=== PATIENT | male | born 1965 | race Hispanic/Latino ===

== ENCOUNTER 2019-06-12 07:48 | Emergency (ER) | payer OTHER ==
[2019-06-12] MEDS ORDERED: NA CHLORIDE 0.9% 1,000 ML ONE (08:06)
[2019-06-12] MEDS ORDERED: ONDANSETRON 4 MG/2 ML VIAL ONE (08:07)
[2019-06-12 08:24] LABS: Absolute Lymphocytes (CBC) 1.2 K/uL (0.7-4.9); Basophils % 0.9 % (0-1.3); Hematocrit 49.3 % (39.6-49.0); Lymphocytes % 21.2 % (15.3-44.8); MPV 8.8 fL (7.6-11.3); RBC Red Blood Cell Count 5.22 M/uL (4.33-5.43)
[2019-06-12 08:43] LABS: ALT/SGPT 58 U/L (12-78); AST/SGOT 33 U/L (15-37); Albumin 3.6 g/dL (3.4-5.0); Alkaline Phosphatase 79 U/L (45-117); BUN Blood Urea Nitrogen 11 mg/dL (7-18); Bicarbonate 26 mmol/L (21-32); Bilirubin Direct 0.2 mg/dL (0-0.2); Bilirubin Total 0.7 mg/dL (0.2-1.0); Glucose Level 112 mg/dL (74-106); Lipase 375 U/L (73-393); Potassium 3.5 mmol/L (3.5-5.1); Protein, Total 7.3 g/dL (6.4-8.2); Sodium Level 143 mmol/L (136-145); Troponin (Emerg Dept Use Only) < 0.02 ng/mL (0.0-0.045)
--- NOTE | 2019-06-12 09:23 | RAD REPORT ---
EXAM DESCRIPTION: Maximo Single View06/12/2019 9:00 am CLINICAL HISTORY: Cough COMPARISON: none FINDINGS: Left lateral base is hazy Right lung appears clear. The heart is normal size IMPRESSION: Left lateral base is hazy probably secondary to overlying soft tissue. An infiltrate cou ld also have this appearance. PA and lateral chest series would be helpful
--- NOTE | 2019-06-12 10:20 | ER ---
Nurse's Notes [facility] Name: Quoc Guillen Jr Age: 53 yrs Sex: Male : 1965 Arrival Date: 06/12/2019 Time: 07:49 Bed 20 Private MD: Diagnosis: Muscle spasm;Left basilar pneumonia Presentation: 06/12 08:02 Presenting complaint: Patient states: woke up this morning and had pain to lui iw shoulders, also felt nauseous and has been belching, denies vomiting, yesterday evening he was working on his car, may have gotten overheated, feels sore/achy, denies abd pain. Transition of care: patient was not received from another setting of care. Onset of symptoms was June 12, 2019. Risk Assessment: Do you want to hurt yourself or someone else? Patient reports no desire to harm self or others. Initial Sepsis Screen: Does the patient meet any 2 criteria? No. Patient's initial sepsis screen is negative. Does the patient have a suspected source of infection? No. Patient's initial sepsis screen is negative. Care prior to arrival: None. 08:02 Method Of Arrival: Ambulatory iw 08:02 Acuity: OFELIA 3 iw Historical: - Allergies: 08:05 No Known Allergies; iw - Home Meds: 08:05 None [Active]; iw - PMHx: 08:05 None; iw - PSHx: 08:05 Hernia repair; left leg; iw - Immunization history:: Adult Immunizations not up to date. - Social history:: Smoking status: Patient/guardian denies using tobacco. - Ebola Screening: : Patient negative for fever greater than or equal to 101.5 degrees Fahrenheit, and additional compatible Ebola Virus Disease symptoms Patient denies exposure to infectious person Patient denies travel to an Ebola-affected area in the 21 days before illness onset No symptoms or risks identified at this time. - Family history:: not pertinent. - Hospitalizations: : No recent hospitalization is reported. Screenin:15 Abuse screen: Denies threats or abuse. Nutritional screening: No deficits noted. em Tuberculosis screening: No symptoms or risk factors identified. Fall Risk None identified. Assessment: 08:16 General: Appears in no apparent distress. comfortable, Behavior is calm, cooperative, em Reports working outside while changing out spark plugs on vehicle, did not drink water while outside, reports having two sweaty shirts Denies fever. Pain: Complains of pain in left trapezius and right trapezius Pain currently is 3 out of 10 on a pain scale. Neuro: Level of Consciousness is awake, alert, obeys commands, Oriented to person, place, time, situation. Cardiovascular: Denies chest pain, Capillary refill < 3 seconds Patient's skin is warm and dry. Rhythm is sinus rhythm. Respiratory: Reports cough that is non-productive, Airway is patent Respiratory effort is even, unlabored, Respiratory pattern is regular, symmetrical, Breath sounds are clear bilaterally. Denies shortness of breath. GI: Abdomen is round non-distended, Bowel sounds present X 4 quads. Abd is soft and non tender X 4 quads. Reports nausea, Patient currently denies diarrhea, vomiting. Derm: Skin is intact, is healthy with good turgor, Skin is pink, warm \T\ dry. Musculoskeletal: Capillary refill < 3 seconds, Range of motion: intact in all extremities. 08:56 Reassessment: Patient appears in no apparent distress at this time. Patient and/or em family updated on plan of care and expected duration. Pain level reassessed. Patient is alert, oriented x 3, equal unlabored respirations, skin warm/dry/pink. nausea has improved, rates pain 3/10. 10:04 Reassessment: Patient appears in no apparent distress at this time. Patient and/or em family updated on plan of care and expected duration. Pain level reassessed. Patient is alert, oriented x 3, equal unlabored respirations, skin warm/dry/pink. Vital Signs: 08:05 BP 131 / 90; Pulse 77; Resp 16; Temp 97.7(O); Pulse Ox 92% on R/A; Weight 111.13 kg; iw Height 5 ft. 7 in. (170.18 cm); 08:56 BP 132 / 87; Pulse 75; Resp 18; Pulse Ox 100% on R/A; Pain 3/10; em 10:04 BP 127 / 78; Pulse 76; Resp 18; Pulse Ox 96% on R/A; em 08:05 Body Mass Index 38.37 (111.13 kg, 170.18 cm) iw ED Course: 07:49 Patient arrived in ED. as 07:53 Guy Camacho MD is Attending Physician. rn 07:55 Reese Chan LVN is Primary Nurse. em 08:04 Triage completed. iw 08:15 EKG done, by medical service technician. reviewed by Guy Camacho MD. at1 08:16 Arm band placed on. em 08:16 Patient has correct armband on for positive identification. Placed in gown. Bed in low em position. Call light in reach. Adult w/ patient. Pulse ox on. NIBP on. 08:19 Initial lab(s) drawn, by me, sent to lab. Inserted saline lock: 20 gauge in right ms antecubital area, using aseptic technique. Blood collected. 09:04 XRAY Chest (1 view) In Process Unspecified. EDMS 10:30 No provider procedures requiring assistance completed. IV discontinued, intact, em bleeding controlled, No redness/swelling at site. Pressure dressing applied. Administered Medications: 08:13 Drug: NS 0.9% 1000 ml Route: IV; Rate: 1000 ml; Site: right forearm; em 10:31 Follow up: IV Status: Completed infusion; IV Intake: 1000ml em 08:14 Drug: Zofran 4 mg Route: IVP; Site: right forearm; iw 09:00 Follow up: Response: No adverse reaction; Marked relief of symptoms; Nausea is decreasedem Intake: 10:31 IV: 1000ml; Total: 1000ml. em Outcome: 10:19 Discharge ordered by . rn 10:31 Discharged to home ambulatory. em 10:31 Condition: good 10:31 Discharge instructions given to patient, family, Instructed on discharge instructions, follow up and referral plans. medication usage, Demonstrated understanding of instructions, follow-up care, medications, Prescriptions given X 2. 10:37 Patient left the ED. em Signatures: Dispatcher [employer] EDCA Reese Chan LVN LVN em Stefany Quinonez Irene, RN Lianne Wilkins ms, Roman, MD MD rn Gonzales, Amanda, general activities therapist EKG Tat1
--- NOTE | 2019-06-12 10:21 | EDPHYS ---
Physician Documentation [facility] Name: Quoc Guillen Jr Age: 53 yrs Sex: Male : 1965 Arrival Date: 06/12/2019 Time: 07:49 Bed 20 Private MD: ED Physician Guy Camacho HPI: 06/12 08:14 This 53 yrs old Male presents to ER via Ambulatory with complaints of Shoulder rn Pain, Nausea. 08:14 The patient or guardian complains of pain. right trapezius and left trapezius. Onset: rn The symptoms/episode began/occurred this morning. Modifying factors: the symptoms are alleviated by nothing. The symptoms are aggravated by movement. Severity of symptoms: At their worst the symptoms were mild, in the emergency department the symptoms are unchanged. The patient has not experienced similar symptoms in the past. The patient has not recently seen a physician. Reports both shoulder hurt, was working for a long time on vehicle, feels like he is dehydrated, woke up feeling nauseated. Denies chest pain/abd pain/diarrhea/vomiting. Reports didn't drink any water yesterday. . Historical: - Allergies: 08:05 No Known Allergies; iw - Home Meds: 08:05 None [Active]; iw - PMHx: 08:05 None; iw - PSHx: 08:05 Hernia repair; left leg; iw - Immunization history:: Adult Immunizations not up to date. - Social history:: Smoking status: Patient/guardian denies using tobacco. - Ebola Screening: : Patient negative for fever greater than or equal to 101.5 degrees Fahrenheit, and additional compatible Ebola Virus Disease symptoms Patient denies exposure to infectious person Patient denies travel to an Ebola-affected area in the 21 days before illness onset No symptoms or risks identified at this time. - Family history:: not pertinent. - Hospitalizations: : No recent hospitalization is reported. ROS: 08:14 Constitutional: Negative for fever, chills, and weight loss, Eyes: Negative for injury, rn pain, redness, and discharge, ENT: Negative for injury, pain, and discharge, Neck: Negative for injury, pain, and swelling, Cardiovascular: Negative for chest pain, palpitations, and edema, Respiratory: Negative for shortness of breath, cough, wheezing, and pleuritic chest pain, Abdomen/GI: Negative for abdominal pain, vomiting, diarrhea, and constipation, Back: Negative for injury and pain, MS/Extremity: Negative for injury and deformity, Skin: Negative for injury, rash, and discoloration, Neuro: Negative for headache, weakness, numbness, tingling, and seizure. Exam: 08:14 Constitutional: This is a well developed, well nourished patient who is awake, alert, rn and in no acute distress. Ambulatory to room without difficulty or assistance. Head/Face: Normocephalic, atraumatic. Eyes: Pupils equal round and reactive to light, extra-ocular motions intact. Lids and lashes normal. Conjunctiva and sclera are non-icteric and not injected. Cornea within normal limits. Periorbital areas with no swelling, redness, or edema. ENT: dry MM Neck: Trachea midline, no thyromegaly or masses palpated, and no cervical lymphadenopathy. Supple, full range of motion without nuchal rigidity, or vertebral point tenderness. No Meningismus. Chest/axilla: Normal chest wall appearance and motion. Nontender with no deformity. No lesions are appreciated. Cardiovascular: Regular rate and rhythm. No pulse deficits. Respiratory: Lungs have equal breath sounds bilaterally, clear to auscultation. No increased work of breathing, no retractions or nasal flaring. Abdomen/GI: soft, non-tender MS/ Extremity: Pulses equal, no cyanosis. Neurovascular intact. Full, normal range of motion. Equal circumference. Neuro: Awake and alert, GCS 15, oriented to person, place, time, and situation. Cranial nerves II-XII grossly intact. Motor strength 5/5 in all extremities. Sensory grossly intact. Cerebellar exam normal. Normal gait. Vital Signs: 08:05 BP 131 / 90; Pulse 77; Resp 16; Temp 97.7(O); Pulse Ox 92% on R/A; Weight 111.13 kg; iw Height 5 ft. 7 in. (170.18 cm); 08:56 BP 132 / 87; Pulse 75; Resp 18; Pulse Ox 100% on R/A; Pain 3/10; em 10:04 BP 127 / 78; Pulse 76; Resp 18; Pulse Ox 96% on R/A; em 08:05 Body Mass Index 38.37 (111.13 kg, 170.18 cm) iw MDM: 07:53 Patient medically screened. rn 10:17 Differential diagnosis: muscle aches, cramps, dehydration, pneumonia. Data reviewed: rn vital signs, nurses notes, lab test result(s), EKG, radiologic studies, plain films, and as a result, I will discharge patient. Counseling: I had a detailed discussion with the patient and/or guardian regarding: the historical points, exam findings, and any diagnostic results supporting the discharge/admit diagnosis, lab results, radiology results, the need for outpatient follow up, to return to the emergency department if symptoms worsen or persist or if there are any questions or concerns that arise at home. Response to treatment: the patient's symptoms have markedly improved after treatment, and as a result, I will discharge patient. Special discussion: I discussed with the patient/guardian in detail that at this point there is no indication for admission to the hospital. It is understood, however, that if the symptoms persist or worsen the patient needs to return immediately for re-evaluation. ED course: Pt improved, is sitting up, laughing, questionable left base haziness, patient with cough, will treat with abx for possible early pneumonia. ECG without ischemic changes, trop neg. . 06/12 08:04 Order name: CBC with Diff; Complete Time: 08:56 rn 06/12 08:04 Order name: Basic Metabolic Panel; Complete Time: 08:56 rn 06/12 08:04 Order name: XRAY Chest (1 view); Complete Time: 10:16 rn 06/12 08:04 Order name: Troponin (emerg Dept Use Only); Complete Time: 08:56 rn 06/12 08:04 Order name: LFT's; Complete Time: 08:56 rn 06/12 08:04 Order name: Lipase; Complete Time: 08:56 rn 06/12 08:04 Order name: IV Start; Complete Time: 08:14 rn 06/12 08:04 Order name: EKG; Complete Time: 08:06 rn 06/12 08:04 Order name: EKG - Nurse/Tech; Complete Time: 08:14 rn Administered Medications: 08:13 Drug: NS 0.9% 1000 ml Route: IV; Rate: 1000 ml; Site: right forearm; em 10:31 Follow up: IV Status: Completed infusion; IV Intake: 1000ml em 08:14 Drug: Zofran 4 mg Route: IVP; Site: right forearm; iw 09:00 Follow up: Response: No adverse reaction; Marked relief of symptoms; Nausea is decreasedem Disposition: 06/12/19 10:19 Discharged to Home. Impression: Muscle spasm, Left basilar pneumonia. - Condition is Stable. - Discharge Instructions: Dehydration, Adult, Community-Acquired Pneumonia, Adult. - Prescriptions for Zofran ODT 4 mg Oral tablet,disintegrating - place 1 tablet by TRANSLINGUAL route every 8 hours As needed; 20 tablet. Zithromax Z- Derrick 250 mg Oral Tablet - take 1 tablet by ORAL route as directed for 5 days Day 1 - take two (2) tablets one time. Day 2, 3, 4 , 5 take one (1) tablet once daily.; 6 tablet. - Medication Reconciliation Form, Thank You Letter, Antibiotic Education, Prescription Opioid Use form. - Follow up: Private Physician; When: As needed; Reason: Recheck today's complaints, Re-evaluation by your physician. - Problem is new. - Symptoms have improved. Signatures: Dispatcher [employer] EDReese Zuleta, ELECTRIC POWER MACHINE OPERATOR ELECTRIC POWER MACHINE OPERATOR em Lorna Pastrana, KIT PANTOJA iw Guy Camacho MD MD travel journalist: (The following items were deleted from the chart) 10:37 10:19 06/12/2019 10:19 Discharged to Home. Impression: Muscle spasm; Left basilar em pneumonia. Condition is Stable. Forms are Medication Reconciliation Form, Thank You Letter, Antibiotic Education, Prescription Opioid Use. Follow up: Private Physician; When: As needed; Reason: Recheck today's complaints, Re-evaluation by your physician. Problem is new. Symptoms have improved. rn
--- NOTE | 2019-06-12 11:45 | EKG ---
Test Date: 2019-06-12 Test Time: 08:09:49 Assistant Professor Of Criminal Justice: SEB MEASUREMENT RESULTS: Intervals: Rate: 75 AK: 148 QRSD: 96 QT: 396 QTc: 442 [place]: P: 42 AK: 148 QRS: -45 T: 43 INTERPRETIVE STATEMENTS: Normal sinus rhythm Left anterior fascicular block Abnormal ECG No previous ECG available for comparison Electronically Signed On 06-12-19 11:44:31 CDT by Melvin Vela
== END 2019-06-12 10:37 | disposition home or self-care (01) ==
LOC: ER 07:48
DX: M62.838 Other muscle spasm (principal); J18.9 Pneumonia, unspecified organism
CPT/HCPCS: 96361; 93005; 85025; 80048; 36415; 80076; 84484; 83690; 71045; 96374; 99284; J7030; J2405

== ENCOUNTER 2022-05-10 12:12 | Emergency (ER) | payer OTHER ==
[2022-05-10] MEDS ORDERED: NA CHLORIDE 0.9% 1,000 ML ONE (12:58)
[2022-05-10 13:05] LABS: Absolute Lymphocytes (CBC) 1.2 K/uL (0.7-4.9); Hematocrit 53.7 % (39.6-49.0); MPV 8.5 fL (7.6-11.3); RBC Red Blood Cell Count 5.77 M/uL (4.33-5.43)
[2022-05-10] MEDS ORDERED: ONDANSETRON 4 MG/2 ML VIAL ONE (13:05)
[2022-05-10] MEDS ORDERED: MORPHINE 4 MG/ML SYR ONE ×2 (13:05→15:32)
[2022-05-10 13:17] LABS: Albumin 3.5 g/dL (3.4-5.0); Bilirubin Total 1.1 mg/dL (0.2-1.0); Potassium 3.9 mmol/L (3.5-5.1); Protein, Total 8.1 g/dL (6.4-8.2)
[2022-05-10 14:02] LABS: Urine Blood Trace-intact (Negative); Urine Glucose 2+ (Negative); Urine Protein 1+ (Negative); Urine Specific Gravity 1.015 (1.005-1.030); Urine pH 6.5 (5.0-7.0)
--- NOTE | 2022-05-10 14:21 | RAD REPORT ---
EXAM DESCRIPTION: CTAbdomen Pelvis W Contrast - 05/10/2022 1:59 pm CLINICAL HISTORY: Abdominal pain. flank pain COMPARISON: No comparisons TECHNIQUE: Biphasic CT imaging of the abdomen and pelvis was performed with 100 ml non-ionic IV cont rast. All CT scans are performed using dose optimization technique as appropriate and may include automated exposure control or mA/KV adjustment according to patient size. FINDINGS: The lung bases are clear. Multiple cysts are present affecting the liver, largest in the left lobe measuring 119 cm. No aggress tika lesion seen. No biliary dilatation. The spleen, pancreas, adrenal glands are normal. Bilateral re nal cysts are present. Large stone is present in the right renal pelvis and calices likely staghorn calculus. Punctate calcu pia is seen superior pole left kidney. No bowel obstruction, free air, free fluid or abscess. Sigmoid diverticulosis coli without diverticul itis. The appendix is normal. Small fat containing left inguinal hernia. No evidence of significant l ymphadenopathy. No suspicious bony findings. IMPRESSION: Large right right-sided staghorn calculus. Punctate superior left renal calculus
[2022-05-10 14:42] LABS: Urine Bacteria <20 /HPF (<20); Urine RBC <5 /HPF (None Seen)
--- NOTE | 2022-05-10 15:07 | ER ---
[facility] Name: Quoc Guillen Jr Age: 56 yrs Sex: Male : 1965 Arrival Date: 05/10/2022 Time: 12:16 Bed 14 [facility] MD: Diagnosis: Calculus of kidney Presentation: 05/10 12:27 Chief complaint: Patient states: right flank pain since Saturday night hurts more when he iw walks, pain radiates to back , no blood in urine. Coronavirus screen: At this time, the client does not indicate any symptoms associated with coronavirus-19. Ebola Screen: Patient negative for fever greater than or equal to 101.5 degrees Fahrenheit, and additional compatible Ebola Virus Disease symptoms Patient denies exposure to infectious person. Patient denies travel to an Ebola-affected area in the 21 days before illness onset. No symptoms or risks identified at this time. Initial Sepsis Screen: Does the patient meet any 2 criteria? No. Patient's initial sepsis screen is negative. Does the patient have a suspected source of infection? No. Patient's initial sepsis screen is negative. Risk Assessment: Do you want to hurt yourself or someone else? Patient reports no desire to harm self or others. Onset of symptoms was May 06, 2022. 12:27 Method Of Arrival: Ambulatory iw 12:27 Acuity: OFELIA 3 iw Triage Assessment: 12:30 General: Appears in no apparent distress. uncomfortable, obese, Behavior is calm, bp cooperative, appropriate for age. Pain: Complains of pain in right flank. EENT: No deficits noted. Neuro: No deficits noted. Cardiovascular: No deficits noted. Respiratory: No deficits noted. GI: No deficits noted. : Reports pain in right flank(s). Derm: No deficits noted. Musculoskeletal: No deficits noted. Historical: - Allergies: 12:28 No Known Allergies; iw - Home Meds: 12:28 None [Active]; iw - PMHx: 12:28 None; iw - PSHx: 12:28 knee; iw - Immunization history:: Adult Immunizations up to date. - Social history:: Smoking status: unknown. Screenin:30 Abuse screen: Denies threats or abuse. Denies injuries from another. Nutritional bp screening: No deficits noted. Tuberculosis screening: No symptoms or risk factors identified. Fall Risk None identified. Assessment: 12:30 General: SEE TRIAGE NOTE. bp 14:48 Reassessment: Patient and/or family updated on plan of care and expected duration. Pain jg9 level reassessed. Patient is alert, oriented x 3, equal unlabored respirations, skin warm/dry/pink. Patient states feeling better. Patient states symptoms have improved. 15:29 Reassessment: Patient and/or family updated on plan of care and expected duration. Pain jg9 level reassessed. Patient is alert, oriented x 3, equal unlabored respirations, skin warm/dry/pink. Patient is alert/active/playful, equal unlabored respirations, skin warm/dry/pink. Vital Signs: 12:27 BP 124 / 80; Pulse 122; Resp 16; Temp 99.6; Pulse Ox 96% ; iw 12:45 BP 145 / 257; Pulse 86; Resp 18 S; Pulse Ox 95% ; Pain 7/10; jg9 13:30 BP 126 / 87; Pulse 113; Resp 17 S; Pulse Ox 95% on R/A; Pain 5/10; jg9 14:30 BP 139 / 90; Pulse 74; Resp 18 S; Pulse Ox 93% on R/A; Pain 5/10; jg9 15:15 BP 120 / 83; Pulse 109; Resp 18 S; Pulse Ox 93% on R/A; Pain 5/10; jg9 ED Course: 12:16 Patient arrived in ED. am2 12:28 Triage completed. iw 12:30 Calvin Pang NP is PHCP. pm1 12:30 Dave Jacinto MD is Attending Physician. pm1 12:30 Patient has correct armband on for positive identification. Bed in low position. Call bp light in reach. Side rails up X2. 12:34 Arm band placed on. bp 12:39 Maria Renae, KIT is Primary Nurse. jg9 12:46 Inserted saline lock: 22 gauge in right antecubital area, using aseptic technique. jg9 Blood collected. 14:01 CT Abd/Pelvis - IV Contrast Only In Process Unspecified. EDMS 14:48 No apparent distress. Resting quietly. jg9 15:06 Jey Alvarez MD is Referral Physician. pm1 15:31 Pt visited by significant other. jg9 15:51 No provider procedures requiring assistance completed. jg9 15:51 IV discontinued. jg9 Administered Medications: 12:53 Drug: NS 0.9% 1000 ml Route: IV; Rate: 1 bolus; Site: right antecubital; jg9 14:48 Follow up: IV Status: Completed infusion; IV Intake: 1000ml jg9 13:00 Drug: morphine 4 mg Route: IVP; Infused Over: 4 mins; Site: right antecubital; jg9 13:47 Follow up: Response: Adverse reaction, Physician notified; Pain is decreased jg9 13:00 Drug: Zofran (Ondansetron) 4 mg Route: IVP; Site: right antecubital; jg9 13:47 Follow up: Response: No adverse reaction jg9 15:24 Drug: morphine 4 mg Route: IVP; Infused Over: 4 mins; Site: right antecubital; jg9 15:36 Follow up: Response: No adverse reaction jg9 15:28 Drug: Ketorolac 30 mg Route: IVP; Site: right antecubital; jg9 15:36 Follow up: Response: No adverse reaction jg9 Medication: 12:30 VIS not applicable for this client. bp Intake: 14:48 IV: 1000ml; Total: 1000ml. jg9 Outcome: 15:06 Discharge ordered by . pm1 15:51 Discharged to home ambulatory. jg9 15:51 Condition: improved 15:51 Discharge instructions given to patient, Instructed on discharge instructions, follow up and referral plans. Demonstrated understanding of instructions, follow-up care, Prescriptions given X 1. 15:52 Patient left the ED. jg9 Signatures: Dispatcher [employer] EDLorna Bowden RN RN iw Marinas, Patrick, NP SOLAR INSTALLATION SUPERVISOR pm1 Catarina Richmond am2 Yuniel Guillen RN RN bp Gilmore, Jennifer, RN RN jg9
--- NOTE | 2022-05-10 15:07 | EDPHYS ---
Physician Documentation [facility] Name: Quoc Guillen Jr Age: 56 yrs Sex: Male : 1965 Arrival Date: 05/10/2022 Time: 12:16 Bed 14 Private MD: ED Physician Dave Jacinto HPI: 05/10 12:39 This 56 yrs old Male presents to ER via Ambulatory with complaints of Flank pm1 Pain - right. 12:39 The patient complains of pain in the right low back. The pain does not radiate. pm1 12:39 Onset: The symptoms/episode began/occurred 5 day(s) ago. Modifying factors: the pm1 symptoms are aggravated by movement. Associated signs and symptoms: Pertinent negatives: dysuria, fever, nausea, vomiting. Severity of pain: in the emergency department the pain has resolved. The patient has not experienced similar symptoms in the past. The patient has not recently seen a physician. Historical: - Allergies: 12:28 No Known Allergies; iw - Home Meds: 12:28 None [Active]; iw - PMHx: 12:28 None; iw - PSHx: 12:28 knee; iw - Immunization history:: Adult Immunizations up to date. - Social history:: Smoking status: unknown. ROS: 12:39 Constitutional: Negative for fever, chills, and weight loss, Cardiovascular: Negative pm1 for chest pain, palpitations, and edema, Respiratory: Negative for shortness of breath, cough, wheezing, and pleuritic chest pain. 12:39 Abdomen/GI: Negative for abdominal pain, nausea, vomiting, diarrhea, and constipation. 12:39 : Negative for injury, bleeding, discharge, and swelling, MS/Extremity: Negative for injury and deformity, Skin: Negative for injury, rash, and discoloration, Neuro: Negative for headache, weakness, numbness, tingling, and seizure. 12:39 Back: Positive for flank pain, on the right. 12:39 All other systems are negative. Exam: 12:39 Constitutional: This is a well developed, well nourished patient who is awake, alert, pm1 and in no acute distress. Head/Face: Normocephalic, atraumatic. 12:39 Skin: Warm, dry with normal turgor. Normal color with no rashes, no lesions, and no evidence of cellulitis. MS/ Extremity: Pulses equal, no cyanosis. Neurovascular intact. Full, normal range of motion. 12:39 Cardiovascular: Exam negative for acute changes, Rate: normal, Rhythm: regular, Pulses: no pulse deficits are appreciated, Heart sounds: normal. 12:39 Respiratory: Exam negative for acute changes, respiratory distress, shortness of breath. 12:39 Abdomen/GI: Inspection: abdomen appears normal, Palpation: abdomen is soft and non-tender, in all quadrants. 12:39 Back: pain, that is mild, of the right low back, vertebral tenderness, is not appreciated. 12:39 Neuro: Exam negative for acute changes, Orientation: is normal, Mentation: is normal, Motor: is normal, moves all fours. Vital Signs: 12:27 BP 124 / 80; Pulse 122; Resp 16; Temp 99.6; Pulse Ox 96% ; iw 12:45 BP 145 / 257; Pulse 86; Resp 18 S; Pulse Ox 95% ; Pain 7/10; jg9 13:30 BP 126 / 87; Pulse 113; Resp 17 S; Pulse Ox 95% on R/A; Pain 5/10; jg9 14:30 BP 139 / 90; Pulse 74; Resp 18 S; Pulse Ox 93% on R/A; Pain 5/10; jg9 15:15 BP 120 / 83; Pulse 109; Resp 18 S; Pulse Ox 93% on R/A; Pain 5/10; jg9 MDM: 12:32 Patient medically screened. pm1 15:04 Data reviewed: vital signs. Data interpreted: Pulse oximetry: on room air is 96 %. pm1 Interpretation:. Counseling: I had a detailed discussion with the patient and/or guardian regarding: the historical points, exam findings, and any diagnostic results supporting the discharge/admit diagnosis, lab results, radiology results, the need for outpatient follow up, to return to the emergency department if symptoms worsen or persist or if there are any questions or concerns that arise at home. 05/10 12:38 Order name: CBC with Diff; Complete Time: 13:12 pm1 05/10 12:38 Order name: CMP; Complete Time: 13:44 pm1 05/10 12:38 Order name: Lipase; Complete Time: 13:44 pm1 05/10 12:38 Order name: Urine Microscopic Only; Complete Time: 14:59 pm1 05/10 14:03 Order name: Urine Dipstick-Ancillary; Complete Time: 14:31 EDMS 05/10 14:45 Order name: Urine Culture EDID 05/10 12:38 Order name: CT Abd/Pelvis - IV Contrast Only; Complete Time: 14:31 pm1 05/10 12:38 Order name: IV Saline Lock; Complete Time: 12:46 pm1 05/10 12:38 Order name: Labs collected and sent; Complete Time: 12:46 pm1 05/10 12:38 Order name: Urine Dipstick-Ancillary (obtain specimen); Complete Time: 14:48 pm1 Administered Medications: 12:53 Drug: NS 0.9% 1000 ml Route: IV; Rate: 1 bolus; Site: right antecubital; jg9 14:48 Follow up: IV Status: Completed infusion; IV Intake: 1000ml j9 13:00 Drug: morphine 4 mg Route: IVP; Infused Over: 4 mins; Site: right antecubital; jg9 13:47 Follow up: Response: Adverse reaction, Physician notified; Pain is decreased jg9 13:00 Drug: Zofran (Ondansetron) 4 mg Route: IVP; Site: right antecubital; jg9 13:47 Follow up: Response: No adverse reaction jg9 15:24 Drug: morphine 4 mg Route: IVP; Infused Over: 4 mins; Site: right antecubital; jg9 15:36 Follow up: Response: No adverse reaction jg9 15:28 Drug: Ketorolac 30 mg Route: IVP; Site: right antecubital; jg9 15:36 Follow up: Response: No adverse reaction jg9 Disposition: 16:49 Attestation: The patient's history, exam findings, diagnostics, and a summary of any [facility] interventions or procedures was reviewed in detail with Calvin Pang NP. Disposition Summary: 05/10/22 15:06 Discharge Ordered Location: Home pm1 Problem: new pm1 Symptoms: have improved pm1 Condition: Stable pm1 Diagnosis - Calculus of kidney pm1 Followup: pm1 - With: Emergency Department - When: As needed - Reason: Worsening of condition Followup: pm1 - With: Private Physician - When: 2 - 3 days - Reason: Recheck today's complaints, Continuance of care, Re-evaluation by your physician Followup: pm1 - With: Jey Alvarez MD - When: 2 - 3 days - Reason: Recheck today's complaints, Continuance of care, Re-evaluation by your physician Discharge Instructions: - Discharge Summary Sheet pm1 - Kidney Stones pm1 Forms: - Medication Reconciliation Form pm1 - Thank You Letter pm1 - Antibiotic Education pm1 - Prescription Opioid Use pm1 Prescriptions: - Tylenol-Codeine #3 300 mg-30 mg Oral - take 2 tablet by ORAL route every 6 hours As needed; 20 tablet; Refills: 0, pm1 Product Selection Permitted Signatures: Dispatcher [employer] EDLorna Bowden RN RN Calvin Causey NP [employer] pm1 Yuniel Guillen, Maria Park RN, RN RN jg9 Dave Jacinto MD MD [id number]
[2022-05-10] MEDS ORDERED: KETOROLAC 30 MG/ML INJ ONE (15:32)
[2022-05-10 16:11] VITALS: TEMP 99.6
[2022-05-10 16:17] VITALS: O2SAT 93
[2022-05-10 16:19] VITALS: BP 120/83
== END 2022-05-10 15:52 | disposition home or self-care (01) ==
LOC: ER 12:12
DX: N20.0 Calculus of kidney (principal)
CPT/HCPCS: 96361; 87088; 85025; 87086; 36415; 83690; 80053; 74177; 96375; 96374; 99284; Q9967; J7030; J2405; 81003; 81015